=== PATIENT | male | born 1980 | race African-American/Black ===

== ENCOUNTER 2020-12-30 16:38 | Outpatient (CLI) | payer OTHER, SELFPAY ==
--- NOTE | ~2020-12-30 | MR_ITS ---
EXAMINATION: MR shoulder LT wo con DATE: 12/30/2020 17:28 INDICATION: Acute onset left shoulder pain TECHNIQUE: Magnetic resonance imaging (MRI) of the left shoulder was performed without intravenous co ntrast. Sequences included axial PD-weighted FS FSE, coronal oblique PD-weighted FS FSE, coronal obli que T2-weighted FS FSE, sagittal PD-weighted FS FSE, and sagittal T1-weighted SE. COMPARISON: None. FINDINGS: Coracoacromial arch: The acromion undersurface is curved in morphology (type II). The coracoacromial ligament is normal. M inimal acromioclavicular osteoarthritis. Rotator cuff: The supraspinatus, infraspinatus and teres minor tendons are normal. The subscapularis tendon is norm al. Normal rotator cuff muscle bulk and signal. Biceps tendon, glenoid labrum and glenohumeral cartilage: Long head of the biceps tendon is normal. Likely small tear at the 12:00-12:30 position of the superi or glenoid labrum slightly cephalad to and normal anterosuperior sublabral foramen with associated cl uster of very small para labral cysts, the largest measuring 7 x 3 mm. Remainder of the labrum appear s normal. Glenohumeral cartilage is normal. Fluid: Small amount of fluid in the long head biceps tendon sheath which is disproportionate to the physiolo gic amount fluid in the glenohumeral joint space consistent with mild bicipital tenosynovitis. No loo se osteochondral bodies. No abnormal fluid signal in the subacromial/subdeltoid bursa to suggest burs itis. Bones: Normal marrow signal with no edema, fracture or abnormal marrow replacing process. IMPRESSION: 1. Small tear at the superior glenoid labrum with associated cluster of very small paralabral cysts. Reviewed, dictated and finalized at location A. IMPRESSION: 1. Small tear at the superior glenoid labrum with associated cluster of very sm all paralabral cysts.
== END 2020-12-30 16:39 | disposition home or self-care (01) ==
DX: M25.512 Pain in left shoulder (principal)
CPT/HCPCS: 73221

== ENCOUNTER 2021-03-05 07:08 | Outpatient (CLI) | payer OTHER, SELFPAY ==
--- NOTE | ~2021-03-05 | MR_ITS ---
EXAMINATION: MR lumbar spine wo [facility] EXAM DATE: 03/05/2021 07:59 INDICATION: Chronic left sided low back pain with left-sided sciatica. TECHNIQUE: Multi-sequential, multiplanar MR images of the lumbar spine were obtained without contrast . Sagittal T1, T2, T2 fat saturation images. Axial T2 weighted images. There is no prior study for comparison. FINDINGS: There is moderate disc disease L4-5 and L5-S1. Annular fissures at these levels. The verteb ral bodies are aligned in the AP dimension. The conus medullaris terminates at the L1/2 level and has normal signal intensity and morphology. There are no suspicious marrow signal abnormalities. Parasp inal soft tissue is unremarkable. Level by level evaluation: T12-L1: Disc does not extend beyond the endplate margin. Facet arthropathy: None. Neural foraminal stenosis: No stenosis. Central canal stenosis: No stenosis. L1-L2: Disc does not extend beyond the endplate margin. Facet arthropathy: None. Neural foraminal stenosis: No stenosis. Central canal stenosis: No stenosis. L2-L3: Disc does not extend beyond the endplate margin. Facet arthropathy: None. Neural foraminal stenosis: No stenosis. Central canal stenosis: No stenosis. L3-L4: Disc does not extend beyond the endplate margin. Facet arthropathy: Mild. Neural foraminal stenosis: No stenosis. Central canal stenosis: No stenosis. L4-L5: There is a moderate diffuse disc bulge. Facet arthropathy: Mild to moderate. Neural foraminal stenosis: Mild to moderate bilateral. Central canal stenosis: Mild. L5-S1: There is a moderate diffuse disc bulge with superimposed moderate-sized left central extrusion into the lateral recess causing mass effect on traversing left S1 nerve root. Facet arthropathy: Mild. Neural foraminal stenosis: Mild to moderate left, mild right. Central canal stenosis: Mild to moderate. (Moderate to severe left lateral recess narrowing) IMPRESSION: L5-S1 disc bulge, superimposed left central extrusion causing mass effect on traversing n erve root. Reviewed, dictated and finalized at location A. IMPRESSION: L5-S1 disc bulge, superimposed left central extrusion causing mass effect on traversing nerve root.
== END 2021-03-05 07:09 | disposition home or self-care (01) ==
LOC: ANHIMG 07:11
DX: M54.42 Lumbago with sciatica, left side (principal); G89.29 Other chronic pain; M51.27 Other intervertebral disc displacement, lumbosacral region
CPT/HCPCS: 72148

== ENCOUNTER 2024-04-16 11:06 | Outpatient (CLI) | payer OTHER, SELFPAY ==
--- NOTE | ~2024-04-16 | MR_ITS ---
EXAMINATION: MR lumbar spine wo/w con DATE: 04/16/2024 12:13 INDICATION: Chronic left-sided low back pain. Left-sided sciatica. TECHNIQUE: Magnetic resonance imaging (MRI) of the lumbar spine was performed without and with 20 mL MultiHance intravenous contrast. COMPARISON: Lumbar spine MRI 03/05/2021 FINDINGS: Alignment is normal. Vertebral body heights are normal. There is moderately decreased disc height at L4-L5 and L5-S1. The distal spinal cord signal intensity is normal. The conus medullaris is at L1. The following disc levels are specifically discussed: L1-L2: The disc does not extend beyond the endplate margin. There is mild bilateral facet joint osteo arthritis. There is no neural foraminal stenosis. There is no central canal stenosis. L2-L3: The disc does not extend beyond the endplate margin. There is mild bilateral facet joint osteo arthritis. There is no neural foraminal stenosis. There is no central canal stenosis. L3-L4: The disc does not extend beyond the endplate margin. There is mild bilateral facet joint osteo arthritis. There is no neural foraminal stenosis. There is no central canal stenosis. L4-L5: The disc is bulging with superimposed central extrusion. There is mild bilateral facet joint o steoarthritis. There is mild bilateral neural foraminal stenosis. There is moderate central canal kael nosis. There is severe stenosis of the lateral recesses. L5-S1: This is bulging is an annular fissure. There is moderate bilateral facet joint osteoarthritis. There is mild bilateral neural foraminal stenosis. There is mild central canal stenosis. IMPRESSION: 1. Moderate lumbar spondylosis, worsened from 03/05/2021. Reviewed, dictated and finalized at location A. 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
== END 2024-04-16 11:07 | disposition home or self-care (01) ==
LOC: MICIMG 11:07
PROVIDERS: PCP Nurse Practitioner Adult Health; Visit Provider Nurse Practitioner Adult Health
DX: M54.42 Lumbago with sciatica, left side (principal); M43.06 Spondylolysis, lumbar region; G89.29 Other chronic pain
CPT/HCPCS: 72158; A9577